=== PATIENT | male | born 1975 | race Caucasian/White ===

== ENCOUNTER → 2016-08-28 | Outpatient (CLI) | payer OTHER ==
--- NOTE | 2016-08-28 12:59 | REP ---
MRI of the left knee: The study is correlated with the knee ultrasound dated 07/10/2016. The study is performed with proton density, T2 and gradient echo data sets in sagittal, axial and coronal projections. There is no Madsen's cyst. There is no popliteal fossa mass. There is a bilobed ganglion cyst along the posterior medial margin of the medial femoral condyle measuring 14 mm by 13 mm by 4 mm. There is a second ganglion cyst along the lateral margin of the medial femoral condyle at the anterior margin of the medial gastrocnemius measuring 5 mm by 4 mm by 7 mm. The mass like density identified on the comparison ultrasound is likely artifact from the soleus muscle. There is a small volume of joint fluid. The patellar and trochlear articular cartilage is unremarkable. The articular cartilage of the medial lateral compartments is unremarkable. There is no unusual marrow signal. The medial and lateral menisci are unremarkable. The anterior posterior cruciate ligaments are unremarkable. The medial lateral collateral ligaments are unremarkable. The quadriceps and patellar tendons are unremarkable. Impression: There are two ganglion cysts along the posteromedial posterolateral margins of the medial femoral condyle as described. There is no other popliteal fossa mass or cyst. The structure identified on the comparison ultrasound is likely artifact from the soleus muscle. There is a small volume of joint fluid. Otherwise, negative MRI the left knee. Signed by Andrey Mckeon MD 08/28/2016 12:49 P
== END ==
LOC: M RAD 10:52
PROVIDERS: ATTEND Family Medicine
DX: R22.42 Localized swelling, mass and lump, left lower limb (principal)

== ENCOUNTER 2019-12-12 15:50 | Emergency (ER) | payer BC, OTHER ==
[~2019-12-12] VITALS: Ht 180.3 cm; Wt 92.7 kg
[2019-12-12] MEDS ORDERED: FLUC150T (15:55)
[2019-12-12] MEDS ORDERED: CHAN1PAK13 (15:55)
[2019-12-12] MEDS ORDERED: NICO21DI9 (15:55)
[2019-12-12 18:02] LABS: BASO # 0.1 10^3/uL (0.0-0.2); BASO % 0.8 % (0.0-1.0); EOS # 0.3 10^3/uL (0.0-0.5); EOS % 3.4 % (0.0-3.0); HEMATOCRIT 39.4 % (42.0-52.0); HEMOGLOBIN 13.4 g/dl (13.5-17.5); LYMPH # 2.4 10^3/uL (1.5-5.0); LYMPH % 31.4 % (24.0-44.0); MEAN CORPUSCULAR HEMOGLOBIN 30.5 pg (27.0-33.0); MEAN CORPUSCULAR VOLUME 89.5 fl (80.0-96.0); MONO # 0.7 10^3/uL (0.0-0.8); MONO % 9.1 % (0.0-5.0); NEUTROPHILS # 4.2 10^3/uL (1.5-8.5); PLATELET COUNT, AUTOMATED 282 10^3/uL (150-450); WHITE BLOOD COUNT 7.6 10^3/uL (4.0-10.0)
[2019-12-12 18:37] LABS: ALBUMIN 3.7 GM/DL (3.2-5.2); ALT/SGPT 45 U/L (12-78); BILIRUBIN,DIRECT < 0.1 MG/DL (0.0-0.2); BILIRUBIN,TOTAL 0.2 MG/DL (0.2-1.0); C REACTIVE PROTEIN QUANTITATIV < 0.30 MG/DL (0.00-0.30)
[2019-12-12 19:07] LABS: ERYTHROCYTE SEDIMENTATION RATE 11 mm/hr (0-15)
[2019-12-12 19:15] VITALS: BP 134/94
--- NOTE | 2019-12-13 00:02 | REP ---
DEEP VENOUS ULTRASONOGRAPHY LEFT THIGH, RULE OUT DVT: REASON FOR EXAM: Pain and swelling. TECHNIQUE: Multiple ultrasonographic images of the deep venous structures of the thigh were obtained from the common femoral vein to the popliteal vein along with Doppler interrogation and color flow Doppler images. FINDINGS: There is no abnormal echogenic material seen within any of the visualized deep venous structures that would suggest acute thrombosis. Coaptation is unremarkable throughout. Doppler interrogation shows an expected response to respiratory variability and augmentation. The color flow images show what appears to be a normal vascular pattern throughout. IMPRESSION: There is no ultrasonographic evidence of deep venous thrombosis involving any of the visualized deep venous structures of the left thigh, as described above. Electronically Signed by Jb Quiñonez DO 12/13/2019 09:50 A
== END 2019-12-12 19:15 | disposition home or self-care (01) ==
LOC: M ED 15:50
DX: M70.52 Other bursitis of knee, left knee (principal); R60.0 Localized edema; Z87.891 Personal history of nicotine dependence

== ENCOUNTER → 2019-12-29 | Outpatient (REF) | payer BC ==
[~2019-12-29] MED LIST: CHAN1PAK13; FLUC150T; NICO21DI9
[2019-12-29 11:26] LABS: CHOLESTEROL RISK RATIO 6.5 (<5)
[2019-12-29 13:04] LABS: HEMOGLOBIN A1c 6.1 %
== END ==
LOC: M SFHCPLAZ 08:31
PROVIDERS: ATTEND Family Medicine
DX: Z13.1 Encounter for screening for diabetes mellitus (principal); Z13.220 Encounter for screening for lipoid disorders

== ENCOUNTER 2021-11-29 13:59 | Emergency (ER) | payer BC ==
[~2021-11-29] VITALS: Ht 180.3 cm; Wt 85.5 kg
[~2021-11-29 13:59] MED LIST changes: -FLUC150T; +FLUC150T9
[2021-11-29] MEDS ORDERED: LIDOCAINE 1% MDV 20ML VIAL SC ONE (17:05)
[2021-11-29 17:46] VITALS: BP 119/71
== END 2021-11-29 17:48 | disposition home or self-care (01) ==
LOC: M ED 13:59
DX: S61.412A Laceration without foreign body of left hand, initial encounter (principal); W26.0XXA Contact with knife, initial encounter; Y92.009 Unspecified place in unspecified non-institutional (private) residence as the place of occurrence of the external cause; Y93.9 Activity, unspecified; Y99.9 Unspecified external cause status; F17.200 Nicotine dependence, unspecified, uncomplicated

== ENCOUNTER 2023-02-08 14:50 | Emergency (ER) | payer BC ==
[~2023-02-08] VITALS: Ht 177.8 cm; Wt 86.8 kg
[2023-02-08 14:51] VITALS: BP 145/91; TEMP 99; O2SAT 97
== END 2023-02-08 19:36 | disposition left against medical advice (07) ==
LOC: M ED 14:50
DX: S69.92XA Unspecified injury of left wrist, hand and finger(s), initial encounter (principal); X58.XXXA Exposure to other specified factors, initial encounter; Y92.89 Other specified places as the place of occurrence of the external cause; Y93.89 Activity, other specified; Y99.8 Other external cause status; Z53.21 Procedure and treatment not carried out due to patient leaving prior to being seen by health care provider